=== PATIENT | male | born 1980 | race African-American/Black ===

== ENCOUNTER → 2018-09-14 | Outpatient (CLI) | payer BC, OTHER | LOC: MRI 14:46 | DX: M51.16 Intervertebral disc disorders with radiculopathy, lumbar region (principal); M48.061 Spinal stenosis, lumbar region without neurogenic claudication; M51.37 Other intervertebral disc degeneration, lumbosacral region; M12.88 Other specific arthropathies, not elsewhere classified, other specified site; G89.29 Other chronic pain; V89.2XXA Person injured in unspecified motor-vehicle accident, traffic, initial encounter ==